=== PATIENT | female | born 1995 | race Two or more races ===

== ENCOUNTER 2016-09-05 13:06 | Emergency (ER) | payer SELFPAY ==
[~2016-09-05] VITALS: Ht 154.9 cm; Wt 70.0 kg
[2016-09-05] MEDS ORDERED: MECLIZINE CHEWABLE 25 MG TAB ONE (13:59)
[2016-09-05] MEDS ORDERED: ONDANSETRON 2MG/ML, 2ML ONE (13:59)
[2016-09-05] MEDS ORDERED: SODIUM CHLORIDE 0.9% 1,000ML IVBOLUS ONE (14:00)
[2016-09-05] MEDS ORDERED: ONDANSETRON 2MG/ML, 2ML IVPush ONE (14:00)
[2016-09-05] MEDS ORDERED: MECLIZINE CHEWABLE 25 MG TAB PO ONE (14:00)
[2016-09-05 14:27] LABS: IS PT STATUS REG ER OR PRE ER? YES
[2016-09-05 14:32] LABS: ASPARTATE AMINO TRANSFERASE 18 U/L (15-37); BLOOD UREA NITROGEN 10 mg/dL (7-18)
[2016-09-05 15:10] VITALS: BP 112/66
== END 2016-09-05 15:11 | disposition home or self-care (01) ==
LOC: ED 14:42
DX: H81.11 Benign paroxysmal vertigo, right ear (principal)
CPT/HCPCS: 36415; 70450; 80053; 84484; 84703; 85025; 93005; 96360; 99285; J7030